=== PATIENT | male | born 2000 | race Caucasian/White ===

== ENCOUNTER → 2024-05-07 | Outpatient (CLI) | payer OTHER ==
--- NOTE | 2024-05-08 08:11 | CA ---
Transthoracic Echo Report Name: Michele Henderson Age: 24 Gender: M : 2000 Exam Date: 05/07/2024 16:15 Exam Location: [facility] Ht (in): 72 Wt (lb): 300 Ordering Physician: Marck Gupta MD Attending/Referring Phys: EWELINA, Candy Ice Carver Mami Villalobos, RDNÉSTOR Procedure CPT: Indications: R07.9 CHEST PAIN, UNSPECIFIED Cardiac Hx: Technical Quality: Fair Contrast 1: Total Dose (mL): Contrast 2: Total Dose (mL): MEASUREMENTS (Male / Female) Normal Values 2D ECHO LV Diastolic Diameter PLAX 4.4 cm 4.2 - 5.9 / 3.9 - 5.3 cm LV Systolic Diameter PLAX 3.5 cm IVS Diastolic Thickness 1.1 cm 0.6 - 1.0 / 0.6 - 0.9 cm LVPW Diastolic Thickness 1.5 cm 0.6 - 1.0 / 0.6 - 0.9 cm LV Relative Wall Thickness 0.6 RV Internal Dim ED PLAX 2.6 cm LA Systolic Diameter LX 3.8 cm 3.0 - 4.0 / 2.7 - 3.8 cm LV Diastolic Volume MOD BP 68.8 cm??? 67 - 155 / 56 - 104 cm??? LV Systolic Volume MOD BP 31.4 cm??? 22 - 58 / 19 - 49 cm??? LV Ejection Fraction MOD BP 54.3 % >= 55 % LV Cardiac Index MOD BP 1111.9 cm???/min???m??? LV Diastolic Volume MOD 4C 67.2 cm??? LV Systolic Volume MOD 4C 40.9 cm??? LV Ejection Fraction MOD 4C 39.1 % LV Cardiac Index MOD 4C 781.0 cm???/min???m??? LV Diastolic Length 4C 8.6 cm LV Systolic Length 4C 7.2 cm LV Diastolic Volume MOD 2C 69.0 cm??? LV Systolic Volume MOD 2C 22.2 cm??? LV Ejection Fraction MOD 2C 67.8 % LV Cardiac Index MOD 2C 1393.2 cm???/min???m??? LV Diastolic Length 2C 8.4 cm LV Systolic Length 2C 7.4 cm LA Volume 54.0 cm??? 18 - 58 / 22 - 52 cm??? LA Volume Index 20.1 cm???/m??? 16 - 28 cm???/m??? M-MODE Aortic Root Diameter MM 3.2 cm LA Systolic Diameter MM 3.4 cm LA Ao Ratio MM 1.0 AV Cusp Separation MM 1.8 cm DOPPLER MV Area PHT 2.7 cm??? Mitral E Point Velocity 61.1 cm/s Mitral A Point Velocity 73.1 cm/s Mitral E to A Ratio 0.8 MV Deceleration Time 277.9 ms FINDINGS Left Ventricle Left ventricular ejection fraction is estimated at 55-60 %. Mildly increased septal wall thickness. Left ventricular cavity size normal. Normal left ventricular systolic function with no obvious regional wall motion abnormalities. Right Ventricle Normal right ventricular size and function. Right ventricular systolic pressure within normal limits. Right Atrium Normal right atrial size. Left Atrium Normal left atrial size. Mitral Valve Structurally normal mitral valve. No mitral stenosis. Trace mitral regurgitation. Aortic Valve Trileaflet aortic valve. No aortic valve stenosis or regurgitation. Tricuspid Valve Structurally normal tricuspid valve. Trace tricuspid regurgitation. No tricuspid stenosis. Pulmonic Valve Structurally normal pulmonic valve. No pulmonic stenosis. Pericardium No pericardial or pleural effusion. Aorta Normal size aortic root and proximal ascending aorta. CONCLUSIONS 1. Normal left ventricular size and systolic function 2. Trace mitral and tricuspid regurgitation Previewed by: Dr. Maldonado Armendariz MD (Electronically Signed) Final Date: 08 May 2024 08:10
== END | disposition home or self-care (01) ==
LOC: RADECHMAIN 16:11
PROVIDERS: ATTEND Family Medicine
DX: R07.9 Chest pain, unspecified (principal)
CPT/HCPCS: 93306